=== PATIENT | female | born 1995 | race Caucasian/White ===

== ENCOUNTER 2017-03-06 09:19 | Emergency (ER) | payer OTHER ==
[2017-03-06 09:23] VITALS: BP 109/65
[2017-03-06] MEDS ORDERED: Ibuprofen ADULT LIQ* 600 MG/30 ML UDC PO ONE (10:00)
[2017-03-06] MEDS ORDERED: predniSONE TAB* 20 MG PO ONE (10:00)
--- NOTE | 2017-03-06 10:01 | ED ---
Throat Pain/Nasal Congestion - HPI Summary HPI Summary: 21 female presents accompanied by friend with complains of sore throat with swelling and radiation that began yesterday 03/05/17. Patient states the pain and swelling became much worse upon waking this morning. She has not taken anything for the sore throat. She has had to spit her saliva into a cup due to the pain being so severe when swallowing. It also causes her pain to talk. She is able to open her mouth. Denies fever/chills, cough, nausea, vomiting, abdominal pain, difficulty breathing and chest pain. 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 Denies history of peritonsillar abscess. - History of Current Complaint Chief Complaint: EDThroatPain Hx Obtained From: Patient Onset/Duration: Sudden Onset, Lasting Days, Worse Since Severity: Moderate Associated Signs And Symptoms: Positive: Dysphagia Cough: None - Epiglottits Risk Factors Epiglottis Risk Factors: Negative - Allergies/Home Medications Allergies/Adverse Reactions: Allergies Allergy/AdvReac Type Severity Reaction Status Date / Time No Known Allergies Allergy Verified 03/06/17 09:25 Home Medications: Home Medications Albuterol HFA INHALER* [Ventolin HFA Inhaler*] 1 puff INH Q6H PRN 03/06/17 [ History Confirmed 03/06/17] Budesonide/Formote 80/4.5(NF) [Symbicort 80/4.5 (NF)] 1 puff INH BID 03/06/17 [ History Confirmed 03/06/17] Lisdexamfetamine Dimesylate [Vyvanse] 50 mg PO DAILY 03/06/17 [History Confirmed 03/06/17] PMH/Surg Hx/FS Hx/Imm Hx Endocrine/Hematology History: 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 Respiratory History: Reports: Hx Asthma Psychiatric History: Reports: Hx Attention Deficit Hyperactivity Disorder - Surgical History Surgery Procedure, Year, and Place: none - Immunization History Immunizations Up to Date: Yes Infectious Disease History: No Infectious Disease History: Denies: Traveled Outside the [place] in Last 30 Days - Family History Known Family History: Positive: Blood Disorder - Social History Occupation: Student Alcohol Use: Occasionally Substance Use Type: Reports: None Smoking Status (MU): Never Smoked Tobacco Review of Systems Constitutional: Negative Eyes: Negative Positive: Sore Throat, Ear Ache, Nasal Discharge Cardiovascular: Negative Respiratory: Negative Gastrointestinal: Negative Musculoskeletal: Negative Skin: Negative Neurological: Negative Psychological: Normal All Other Systems Reviewed And Are Negative: Yes Physical Exam Triage Information Reviewed: Yes Vital Signs On Initial Exam: Initial Vitals Temp Pulse Resp BP Pulse Ox 98.4 F 107 19 109/65 100 03/06/17 09:21 03/06/17 09:21 03/06/17 09:21 03/06/17 09:21 03/06/17 09:21 tachycardia noted, sign of strep pharyngitis Vital Signs Reviewed: Yes Appearance: Positive: No Pain Distress - pain upon swallowing, Well-Nourished, Ill-Appearing Skin: Positive: Warm, Skin Color Reflects Adequate Perfusion, Other Head/Face: Positive: Normal Head/Face Inspection Eyes: Positive: Normal, Conjunctiva Clear ENT: Positive: Normal ENT inspection, Hearing grossly normal, Pharyngeal erythema, Nasal congestion, TMs normal, Tonsillar swelling - right greater than left, Other - airway patent, uvula midline, no sign of peritonsillar abscess. Negative: Nasal drainage, Tonsillar exudate, Trismus, Muffled/hoarse voice, Dental tenderness Dental: Positive: Cervical Lymphadenopathy. Negative: Percussion Tenderness @ Neck: Positive: Supple, Nontender Respiratory/Lung Sounds: Positive: Clear to Auscultation, Breath Sounds Present Cardiovascular: Positive: Normal, RRR, Pulses are Symmetrical in both Upper and Lower Extremities Abdomen Description: Positive: Nontender Bowel Sounds: Positive: Present Musculoskeletal: Positive: Normal, Strength/ROM Intact Neurological: Positive: Normal, Sensory/Motor Intact, Alert, Oriented to Person Place, Time Psychiatric: Positive: Normal Diagnostics - Vital Signs Vital Signs Temp Pulse Resp BP Pulse Ox 03/06/17 09:23 98.4 F 107 19 109/65 99 03/06/17 09:21 98.4 F 107 19 109/65 100 - Laboratory Lab Statement: Any lab studies that have been ordered have been reviewed, and results considered in the medical decision making process. EENT Course/Dx - Course Course Of Treatment: given oral prednisone and ibuprofen while in ED. strep culture obtained and positive. given bicillin. will be given prednisone to continue x 3 days while at home. continue ibuprofen for inflammation, pain and fever. aware of worsening signs and symptoms to watch out for, including peritonsillar abscess and difficulty breathing. follow up, fluids and rest. - Differential Diagnoses Differential Diagnoses: Laryngitis, Otitis Media, Periodontic Abscess, Peritonsillar Ulcer, Pharyngitis, Sinusitis, Tonsilitis, URI/Bronchitis - Diagnoses Provider Diagnoses: Tonsillitis, Strep pharyngitis Discharge - Discharge Plan Condition: Stable Disposition: HOME Prescriptions: predniSONE TAB* [Deltasone TAB*] 20 mg PO DAILY #2 tab Patient Education Materials: Strep Throat (ED) Forms: *School Release [facility] - Additional Instructions: Take prescribed steroid for the next 2 days. You do not need an antibiotic since you received the shot while in ED. Take ibuprofen/tylenol for inflammation, pain and fever. Drink plenty of fluids and get plenty of rest. Recommend swishing with salt water and keeping good oral hygiene. Do not share drinks and wash hands frequently as this is contagious. Watch for worsening signs and symptoms including increased swelling, difficulty breathing, high fever, unable to swallow, increased pain and discharge. If these symptoms persist please seek medical attention promptly. Follow up with primary care provider/ [facility] is recommended.
[2017-03-06] MEDS ORDERED: Penicillin G Benzathine 2.4MU* 2,400,000 UNITS/4 ML SYR IM ONE (11:03)
== END 2017-03-06 11:46 | disposition home or self-care (01) ==
LOC: ED 09:19
DX: J02.0 Streptococcal pharyngitis (principal); J03.90 Acute tonsillitis, unspecified; D68.51 Activated protein C resistance; J45.909 Unspecified asthma, uncomplicated; F90.9 Attention-deficit hyperactivity disorder, unspecified type
CPT/HCPCS: 87651; 96372; 99282; A9270-GY; J7512

== ENCOUNTER 2017-09-12 11:32 | Emergency (ER) | payer OTHER ==
[2017-09-12] MEDS ORDERED: cefTRIAXone VIAL(*) 1,000 MG VIAL IM ONE (14:04)
[2017-09-12] MEDS ORDERED: predniSONE TAB* 20 MG PO ONE (14:08)
[2017-09-12] MEDS ORDERED: Lidocaine 1%* 5 ML VIAL ONE (14:18)
[2017-09-12 15:04] VITALS: BP 106/64
--- NOTE | 2017-09-13 08:35 | ED ---
Jhonatan Joya Angela, scribed for Reymundo Alexandre MD on 09/12/17 at 1204 . Throat Pain/Nasal Congestion - HPI Summary HPI Summary: This pt is a 22 y/o female presenting to [facility] c/o sore throat and bilateral ear pain since yesterday. She states it is painful to swallow but is still able to swallow. Pt denies fever, cough, chest pain, SOB, nausea, vomiting, diarrhea. Pt notes she was in the ED a couple months ago for the same symptoms and was given a penicillin shot, which she reports helped her a lot. She has just started taking Myorisan recently for acne. No PMHx. - History of Current Complaint Chief Complaint: EDThroatPain Time Seen by Provider: 09/12/17 11:52 Hx Obtained From: Patient Onset/Duration: Lasting Days - 1, Still Present Associated Signs And Symptoms: Negative: Sinus Discomfort Cough: None - Allergies/Home Medications Allergies/Adverse Reactions: Allergies Allergy/AdvReac Type Severity Reaction Status Date / Time No Known Allergies Allergy Verified 03/06/17 09:25 PMH/Surg Hx/FS Hx/Imm Hx Endocrine/Hematology History: Denies: Hx Diabetes Cardiovascular History: Denies: Hx Hypertension Respiratory History: Reports: Hx Asthma Psychiatric History: Reports: Hx Attention Deficit Hyperactivity Disorder - Surgical History Surgery Procedure, Year, and Place: none Infectious Disease History: No Infectious Disease History: Denies: Traveled Outside the [place] in Last 30 Days - Family History Known Family History: Positive: Blood Disorder - Social History Alcohol Use: Occasionally Substance Use Type: Reports: None Smoking Status (MU): Never Smoked Tobacco Review of Systems Negative: Fever, Chills Positive: Sore Throat, Ear Ache - bilateral Negative: Chest Pain Negative: Shortness Of Breath, Cough All Other Systems Reviewed And Are Negative: Yes Physical Exam - Summary Physical Exam Summary: VITAL SIGNS: Reviewed. GENERAL: ~Patient is a well-developed and nourished female who is lying comfortable in the stretcher. Patient is not in any acute respiratory distress. HEAD AND FACE: No signs of trauma. ~No ecchymosis, hematomas or skull depressions. No sinus tenderness. EYES: PERRLA, EOMI x 2, No injected conjunctiva, no nystagmus. EARS: Hearing grossly intact. Ear canals and tympanic membranes are within normal limits. MOUTH: Oropharynx within normal limits. Pharyngeal erythema with some exudates. NECK: Supple, trachea is midline, no adenopathy, no JVD, no carotid bruit, no c- spine tenderness, neck with full ROM. CHEST: Symmetric, no tenderness at palpation LUNGS: Clear to auscultation bilaterally. No wheezing or crackles. CVS: Regular rate and rhythm, S1 and S2 present, no murmurs or gallops appreciated. ABDOMEN: Soft, non-tender. No signs of distention. No rebound no guarding, and no masses palpated. Bowel sounds are normal. EXTREMITIES: FROM in all major joints, no edema, no cyanosis or clubbing. NEURO: Alert and oriented x 3. No acute neurological deficits. Speech is normal and follows commands. SKIN: Dry and warm Triage Information Reviewed: Yes Vital Signs On Initial Exam: Initial Vitals Temp Pulse Resp BP Pulse Ox 100.4 F 86 20 107/63 100 09/12/17 11:44 09/12/17 11:44 09/12/17 11:44 09/12/17 11:44 09/12/17 11:44 Vital Signs Reviewed: Yes Diagnostics - Vital Signs Vital Signs Temp Pulse Resp BP Pulse Ox 09/12/17 11:44 100.4 F 86 20 107/63 100 - Laboratory Lab Results: Lab Results 09/12/17 Range/Units 13:02 Group A Strep Rapid Negative (Negative) Lab Statement: Any lab studies that have been ordered have been reviewed, and results considered in the medical decision making process. Re-Evaluation - Re-Evaluation First Eval Re-Evaluation Time: 14:07 Comment: I reviewed the test results with the pt. EENT Course/Dx - Course Assessment/Plan: This pt is a 22 y/o female presenting to [facility] c/o sore throat and bilateral ear pain since yesterday. She states it is painful to swallow but is still able to swallow. Pt denies fever, cough, chest pain, SOB, nausea, vomiting, diarrhea. Pt notes she was in the ED a couple months ago for the same symptoms and was given a penicillin shot, which she reports helped her a lot. She has just started taking Myorisan recently for acne. No PMHx. Rapid strep is negative. However, I do believe she has a bacterial infection in the pharynx. She was given rocephin and prednisone. Pt was also given a prescription for augmentin for the next couple of days. Pt is hemodynamically stable, alert and oriented x3. - Diagnoses Provider Diagnoses: Pharyngitis Discharge - Discharge Plan Condition: Stable Disposition: HOME Prescriptions: Amoxicillin/Clavulanate TAB* [Augmentin TAB 875*] 875 mg PO BID #20 tab predniSONE TAB* [Deltasone TAB*] 40 mg PO DAILY #6 tab Patient Education Materials: Pharyngitis (ED) [facility] - Additional Instructions: Please follow up with your primary care provider. RETURN TO THE ED FOR ANY WORSENING SYMPTOMS. The documentation as recorded by the Jhonatan kim Angela accurately reflects the service I personally performed and the decisions made by , Reymundo Alexandre MD.
== END 2017-09-12 15:03 | disposition home or self-care (01) ==
LOC: ED 11:32
DX: J02.9 Acute pharyngitis, unspecified (principal); H92.03 Otalgia, bilateral; J45.909 Unspecified asthma, uncomplicated; F90.9 Attention-deficit hyperactivity disorder, unspecified type
CPT/HCPCS: 87651; 96372; 99282; J0696; J7512